=== PATIENT | female | born 1985 | race Caucasian/White ===

== ENCOUNTER 2022-03-06 13:56 | Outpatient (CLI) | payer OTHER, SELFPAY ==
--- NOTE | ~2022-03-06 | US_ITS ---
EXAMINATION: US OB follow up DATE: 03/06/2022 15:04 INDICATION: Fundal height below for estimated gestational age during third trimester . Irreg ular weight gain. TECHNIQUE: Real-time ultrasound of the pelvis was performed. The interpreting radiologist was not pre sent for the study. COMPARISON: None. FINDINGS: There is a single living fetus in vertex presentation. The placenta is fundal. heart rate is 1 32 beats per minute (bpm). The amniotic fluid index is 11.1 cm, which is normal (5th%-95%: 7.3-23.9 cm at 38 weeks estimated gestational age). The following biometric data were obtained: BPD: 8.7 cm -> 35 weeks 0 days Head circumference: 32.3 cm -> 36 weeks 4 days Abdominal circumference: 30.8 cm -> 34 weeks 5 days Femur length: 6.8 cm -> 34 weeks 5 days These measurements are concordant. Head circumference to abdominal circumference ratio: 1.02 (normal range 0.93-1.10). Estimated weight: 2557 g (+/-) 384 g or 5 lbs. 10 oz. (+/-) 14 oz. IMPRESSION: 1. Single living fetus in vertex presentation with heart rate of 132 bpm. 2. Gestational age by ultrasound of 35 weeks 2 day(s) +/- 2 week(s) 3 day(s) with ultrasound estimate d date of delivery (NEDRA) of 04/08/2022. Estimated weight is 4th percentile by Hadlock criteria w hen 03/18/2022 is used as the NEDRA. Please correlate with clinical information or earlier ultrasounds f or most accurate NEDRA. 3. Normal amniotic fluid index of 11.1 cm. Reviewed, dictated and finalized at location B. IMPRESSION: 1. Single living fetus in vertex presentation with heart rate of 132 bpm. 2. Gestational age by ultrasound of 35 weeks 2 day(s) +/- 2 week(s) 3 day(s) wi th ultrasound estimated date of delivery (NEDRA) of 04/08/2022. Estimated we ight is 4th percentile by Hadlock criteria when 03/18/2022 is used as the NEDRA. P lease correlate with clinical information or earlier ultrasounds for most accur ate NEDRA. 3. Normal amniotic fluid index of 11.1 cm.
== END 2022-03-06 13:57 | disposition home or self-care (01) ==
PROVIDERS: Visit Provider Obstetrics & Gynecology
DX: O26.93 Pregnancy related conditions, unspecified, third trimester (principal); Z3A.35 35 weeks gestation of pregnancy
CPT/HCPCS: 76816